=== PATIENT | female | born 1945 | race Caucasian/White ===

== ENCOUNTER 2022-01-02 13:32 | Inpatient (IN) | payer MEDICARE, MEDICAID ==
[2022-01-02 16:43] VITALS: BP 97/55; PULSE 104; TEMP 98.3
--- NOTE | 2022-01-02 17:16 | NUR ---
Pt recently arrived to the floor via EMS from [place]. She is alert and oriented, pain complaints to her abd. Pt does have an INT to her left AC which is INT'd at this time. Pt's son is at the bedside. Dr Judge in to see pt, awaiting orders at this time. Hospitalist also aware pt has arrived. RT has not brought IS at this time
[2022-01-02] MEDS ORDERED: LIPITOR 40MG TA40 MG PO (18:00)
[2022-01-02] MEDS ORDERED: FLONASEALLERGY NS (18:00)
[2022-01-02] MEDS ORDERED: FOLIC ACID0.4 MG PO (18:01)
[2022-01-02] MEDS ORDERED: MAG-OX 400400 MG/TAB PO (18:02)
[2022-01-02] MEDS ORDERED: LIALDA 1.2 GM1.2 GM PO (18:03)
[2022-01-02] MEDS ORDERED: MULTI VITAMINS1 TAB PO (18:04)
[2022-01-02] MEDS ORDERED: SINGULAIR 110 MG/TAB PO (18:04)
[2022-01-02] MEDS ORDERED: PREDNISONE 5MG5 MG PO ×2 (18:05→18:15)
[2022-01-02] MEDS ORDERED: PROTONIX 40MG T40 MG PO (18:05)
[2022-01-02] MEDS ORDERED: VITAMIN B650 MG PO (18:06)
[2022-01-02] MEDS ORDERED: VITAMIN D31000 IU PO (18:07)
[2022-01-02] MEDS ORDERED: LASIX 80MG TABL80 MG PO ×2 (18:08→18:22)
[2022-01-02] MEDS ORDERED: CARAFATE 1GM1 G PO (18:09)
[2022-01-02] MEDS ORDERED: NORCO 325 MG-51 TAB PO ×2 (18:17→18:18)
[2022-01-02] MEDS ORDERED: MIRALAX PA17 GM/Dose PO (18:17)
[2022-01-02] MEDS ORDERED: DULCOLAX TAB5 MG PO (18:23)
[2022-01-02] MEDS ORDERED: TUMS500 MG (18:23)
[2022-01-02] MEDS ORDERED: DULCOLAX S10 MG/SUPP RC (18:24)
[2022-01-02] MEDS ORDERED: FLEET MINE1 BOT/133 RC (18:25)
[2022-01-02] MEDS ORDERED: TYLENOL 325MG325 MG PO (18:26)
[2022-01-02] MEDS ORDERED: MYLANTA MAXIMU355 M1 PO (18:27)
[2022-01-02] MEDS ORDERED: BROVANA15 MCG/2 M IH (18:28)
[2022-01-02] MEDS ORDERED: YUPELRI175 MCG/3 IH (18:29)
[2022-01-02] MEDS ORDERED: PULMICORT0.5 MG/2 M IH (18:29)
[2022-01-02] MEDS ORDERED: PROAIR HFA0.09 MG/AC IH (18:32)
--- NOTE | 2022-01-02 19:22 | NUR ---
RECEIVED CHANGE OF SHIFT REPORT FROM DAY SHIFT RN.
[2022-01-02 19:58] VITALS: BP 104/63; PULSE 95; TEMP 97.7
[2022-01-02 23:51] VITALS: BP 115/56; PULSE 79; TEMP 97.5
[2022-01-03 03:45] VITALS: BP 101/46; PULSE 62; TEMP 97.3
[2022-01-03 06:52] LABS: HEMOGLOBIN 10.4 g/dl (12.5-16.0); MEAN CELL VOLUME 86 fl (80.0-100.0); MEAN CORPUSCULAR HEMOGLOBIN 27 pg (27-31); MEAN CORPUSCULAR HGB CONC 32 g/dl (33.0-37.0); MEAN PLATELET VOLUME 9.4 fl (7.4-10.4); PLATELET COUNT 391 K/mm3 (130-400); RED BLOOD COUNT 3.85 M/mm3 (4.10-5.30); REDCELL DISTRIBUTION WIDTH-CV 15.1 % (11.5-14.5)
--- NOTE | 2022-01-03 07:01 | NUR ---
CHANGE OF SHIFT REPORT GIVEN TO DAY SHIFT RNSHOAIB.
[2022-01-03 07:22] LABS: ALBUMIN 2.3 gm/dL (3.4-4.8); BILIRUBIN,TOTAL 0.2 mg/dL (0.2-1.2); CALCIUM 9.1 mg/dL (8.4-10.2); CREATININE, serum 1.43 mg/dL (0.57-1.11); TOTAL PROTEIN 5.4 gm/dL (6.2-8.1)
[2022-01-03 08:18] VITALS: BP 114/61; PULSE 62; TEMP 97.4
[2022-01-03 08:33] LABS: BAND 14 % (0-10); LYMPHOCYTE 15 % (20.0-51.0); NEUTROPHILS 69 % (42.0-75.2); PLATELET ESTIMATE NORMAL (NORMAL)
--- NOTE | 2022-01-03 10:05 | NUR ---
PT ASSESSED. NO COMPLAINTS OF PAIN OR DYSPNEA. NO SIGNS OR SYMPTOMS OF DISTRESS. CALL LIGHT WITHIN REACH
--- NOTE | 2022-01-03 10:11 | NUR ---
Initial visit; Patient thanked Public Health Veterinarian for looking in on her and keeping her in Public Health Veterinarian's prayers.
[2022-01-03 11:54] VITALS: BP 111/44; PULSE 71; TEMP 97.8
--- NOTE | 2022-01-03 14:22 | NUR ---
Dental Technician Apprentice met with patient to discuss discharge planning. Patient states she lives at [facility] "for now" and has been there for rehab. Patient states she sees Dr. Sheriff for primary care and advised she has a walker, cane, and wears oxygen at baseline. Patient advised her plan is to return to [facility] at time of discharge. SW contacted patient's daughter, Grace (ph#[phone]) to provide update. Grace advised that she and her brother, Raza Swanson are patient's DPOA-HC. SW advised Grace that discharge plan will be to return to [facility]. PROSPER contacted Kory at [facility] and faxed clinical updates. PROSPER also requested a copy of patient's DPOA-HC be faxed to PROSPER. Discharge Plan: [facility]
[2022-01-03 15:41] VITALS: BP 111/51; PULSE 79; TEMP 97.8
[2022-01-03 20:33] VITALS: BP 108/42; PULSE 84; TEMP 97.9
[2022-01-04 00:55] VITALS: BP 107/45; PULSE 74; TEMP 98
[2022-01-04 03:48] VITALS: BP 108/46; PULSE 69; TEMP 97.4
[2022-01-04 05:44] LABS: MEAN CELL VOLUME 85 fl (80.0-100.0); MEAN CORPUSCULAR HGB CONC 32 g/dl (33.0-37.0); MEAN PLATELET VOLUME 9.3 fl (7.4-10.4); PLATELET COUNT 357 K/mm3 (130-400); RED BLOOD COUNT 3.51 M/mm3 (4.10-5.30); REDCELL DISTRIBUTION WIDTH-CV 14.9 % (11.5-14.5)
[2022-01-04 06:02] LABS: HEMATOCRIT 29.9 % (37.0-47.0); HEMOGLOBIN 9.7 g/dl (12.5-16.0); MEAN CORPUSCULAR HEMOGLOBIN 28 pg (27-31)
[2022-01-04 06:07] LABS: BILIRUBIN,TOTAL 0.2 mg/dL (0.2-1.2); CALCIUM 8.9 mg/dL (8.4-10.2); CREATININE, serum 1.07 mg/dL (0.57-1.11); MAGNESIUM 1.9 mg/dL (1.6-2.6); POTASSIUM 5.1 mmol/L (3.5-4.5); TOTAL PROTEIN 4.9 gm/dL (6.2-8.1)
[2022-01-04 07:17] LABS: BAND 2 % (0-10); EOSINOPHIL 1 % (0-4); LYMPHOCYTE 8 % (20.0-51.0); NEUTROPHILS 86 % (42.0-75.2); PLATELET ESTIMATE NORMAL (NORMAL)
[2022-01-04 08:52] VITALS: BP 119/57; PULSE 87; TEMP 98
--- NOTE | 2022-01-04 09:18 | NUR ---
PT ASSESSED. NO COMPLAINTS OF PAIN OR DYSPNEA. NO SIGNS OR SYMPTOMS OF DISTRESS. CALL LIGHT WITHIN REACH.
--- NOTE | 2022-01-04 11:25 | NUR ---
Initial visit; Patient thanked Bag Bleacher for looking in on her and offering God's blessings and keeping her in Bag Bleacher's prayers.
[2022-01-04 11:27] VITALS: BP 110/63; PULSE 91; TEMP 97.8
[2022-01-04 16:22] VITALS: BP 113/71; PULSE 91; TEMP 97.8
[2022-01-04 19:25] VITALS: BP 121/60; PULSE 92; TEMP 97.9
[2022-01-05] VITALS (7 sets, daily range): BP systolic 104–141; BP diastolic 45–90; PULSE 64–103; TEMP 97.6–98.2
[2022-01-05 06:27] LABS: HEMOGLOBIN 10.1 g/dl (12.5-16.0); MEAN CELL VOLUME 87 fl (80.0-100.0); MEAN CORPUSCULAR HEMOGLOBIN 27 pg (27-31); MEAN CORPUSCULAR HGB CONC 32 g/dl (33.0-37.0); MEAN PLATELET VOLUME 9.1 fl (7.4-10.4); PLATELET COUNT 420 K/mm3 (130-400); RED BLOOD COUNT 3.69 M/mm3 (4.10-5.30)
[2022-01-05 06:46] LABS: CALCIUM 8.7 mg/dL (8.4-10.2); CREATININE, serum 0.83 mg/dL (0.57-1.11); POTASSIUM 4.5 mmol/L (3.5-4.5)
[2022-01-05 07:45] LABS: BAND 1 % (0-10); EOSINOPHIL 1 % (0-4); LYMPHOCYTE 7 % (20.0-51.0); MYELOCYTE 1 % (0-0); NEUTROPHILS 88 % (42.0-75.2); PLATELET ESTIMATE INCREASED (NORMAL)
--- NOTE | 2022-01-05 08:44 | NUR ---
PT ASSESSED. NO COMPLAINTS OF PAIN OR DYSPNEA. NO SIGNS OR SYMPTOMS OF DSITRESS. CALL LIGHT WITHIN REACH
--- NOTE | 2022-01-05 22:44 | NUR ---
Received report from day shift. Performed assessment, VSS, lungs CTA. Administered PM meds. Patient has significant bruising to bilat upper extremities. Patient has two small pressure ulcers at different stages on coccyx. Dressing in place.
[2022-01-06 02:54] VITALS: BP 120/48; PULSE 90; TEMP 98
[2022-01-06 06:29] LABS: HEMOGLOBIN 10.7 g/dl (12.5-16.0); MEAN CELL VOLUME 86 fl (80.0-100.0); MEAN CORPUSCULAR HEMOGLOBIN 27 pg (27-31); MEAN CORPUSCULAR HGB CONC 32 g/dl (33.0-37.0); MEAN PLATELET VOLUME 9.2 fl (7.4-10.4); PLATELET COUNT 453 K/mm3 (130-400); RED BLOOD COUNT 3.94 M/mm3 (4.10-5.30); REDCELL DISTRIBUTION WIDTH-CV 15.3 % (11.5-14.5)
[2022-01-06 06:35] LABS: HEMATOCRIT 33.9 % (37.0-47.0)
[2022-01-06 06:51] LABS: ALBUMIN 2.3 gm/dL (3.4-4.8); CALCIUM 9.3 mg/dL (8.4-10.2); CREATININE, serum 0.74 mg/dL (0.57-1.11); MAGNESIUM 1.7 mg/dL (1.6-2.6); PHOSPHOROUS 2.4 mg/dL (2.3-4.7); POTASSIUM 4.7 mmol/L (3.5-4.5)
[2022-01-06 07:03] VITALS: BP 141/78; PULSE 95; TEMP 97.6
[2022-01-06 07:04] LABS: BAND 2 % (0-10); LYMPHOCYTE 17 % (20.0-51.0); NEUTROPHILS 74 % (42.0-75.2)
[2022-01-06 07:05] LABS: ANISOCYTOSIS 1+; HYPOCHROMIA 1+; PLATELET ESTIMATE INCREASED (NORMAL)
--- NOTE | 2022-01-06 08:00 | NUR ---
PATIENT IS A&O. VSS ON TELE. NO C/O PAIN OR N/V. PATIENT UP TO BATHROOM AND HAD SMALL SOFT STOOL. PATIENT HOPING TO HAVE HER DIET ADVANCED TODAY. HEAD TO TOE ASSESSMENT COMPLETE. AM MEDS GIVEN. LEFT AC IV TO INT. NO OTHER NEEDS. CALL LIGHT IN REACH. BED ALARM ON.
--- NOTE | 2022-01-06 11:31 | NUR ---
Assistant Professor Of Economics faxed clinical updates to Kory at [facility]. Hospitalist advised patient not ready for discharge at this time. Discharge Plan: [facility]
[2022-01-06 12:00] VITALS: BP 128/75; PULSE 53; TEMP 97.9
[2022-01-06 15:03] VITALS: BP 108/63; PULSE 94; TEMP 98.3
[2022-01-06 19:10] VITALS: BP 115/67; PULSE 107; TEMP 97.5
--- NOTE | 2022-01-06 20:00 | NUR ---
Bedside shift report received, assumed care for maintenance supervisor 2nd shift. Assessment complete. A&Ox3. Rating pain 6/10 to back-described as constant ache-scheduled norco given per dr order. Tele reporting SR-1st degree AVB/BBB. O2@2L/NC with adequate saturations. Denies abdominal pain/nausea. Has tolerated PO. INT to left AC flushes without difficulty. +BM/+flatus. Voiding without difficulty. Stage II ulcer x2-pea size on each side of coccyx. Mepilex applied. Plan of care discussed for this shift to include meds/calling for questions/concerns. Verbalizes understanding. Call light in reach. Will monitor.
[2022-01-07] VITALS (8 sets, daily range): BP systolic 99–149; BP diastolic 53–72; PULSE 73–151; TEMP 97.6–98.4
--- NOTE | 2022-01-07 04:59 | NUR ---
Had an uneventful night. Denied nausea/shortness of breath/pain. +BM/+flatus. VS stable. Tolerated diet. Denies current needs. Call light in reach. Will monitor.
[2022-01-07 06:28] LABS: MEAN CELL VOLUME 88 fl (80.0-100.0); MEAN CORPUSCULAR HEMOGLOBIN 28 pg (27-31); MEAN CORPUSCULAR HGB CONC 31 g/dl (33.0-37.0); MEAN PLATELET VOLUME 9.2 fl (7.4-10.4); PLATELET COUNT 428 K/mm3 (130-400); RED BLOOD COUNT 3.63 M/mm3 (4.10-5.30); REDCELL DISTRIBUTION WIDTH-CV 15.2 % (11.5-14.5)
[2022-01-07 06:35] LABS: HEMATOCRIT 31.8 % (37.0-47.0)
[2022-01-07 06:56] LABS: ALBUMIN 2.1 gm/dL (3.4-4.8); CALCIUM 8.9 mg/dL (8.4-10.2); CREATININE, serum 0.74 mg/dL (0.57-1.11); MAGNESIUM 1.6 mg/dL (1.6-2.6); PHOSPHOROUS 2.8 mg/dL (2.3-4.7); POTASSIUM 4.4 mmol/L (3.5-4.5)
[2022-01-07 07:31] LABS: BAND 5 % (0-10); EOSINOPHIL 1 % (0-4); LYMPHOCYTE 16 % (20.0-51.0); NEUTROPHILS 69 % (42.0-75.2); PLATELET ESTIMATE NORMAL (NORMAL)
--- NOTE | 2022-01-07 07:45 | NUR ---
PATIENT GIVEN CONTRAST BY RADIOLOGY FOR SCAN IN AN HOUR
--- NOTE | 2022-01-07 08:00 | NUR ---
PATIENT IS A&O. VSS ON TELE. 02 @ 2L PER NC WITH SATS IN UPPER 90'S. PATIENT WEARS 02 @ 2L AT HOME AT BASELINE. DENIES PAIN OR N/V. TOLERATING LOW FIBER DIET. ABD IS ROUND, SOFT AND WITH POSITIVE BOWL SOUNDS. PATIENT HAVING SEVERAL SMALL SEMI-LOOSE STOOLS. IV ABX INFUSING VIA PUMP INTO LEFT AC IV. HEAD TO TOE ASSESSMENT COMPLETE. HOLDING AM MEDS FOR CONTRAST/CT SCAN THIS AM.
--- NOTE | 2022-01-07 08:45 | NUR ---
PATIENT GOING DOWN TO RADIOLOGY VIA FOR SCAN.
--- NOTE | 2022-01-07 09:50 | NUR ---
PATIENT BACK FROM SCAN. NOTED HR IN THE 140-150'S. HOSPITALIST NOTIFIED, SEE ORDERS.
--- NOTE | 2022-01-07 11:05 | NUR ---
RT CALLED AND REMINDED OF EKG ORDER
--- NOTE | 2022-01-07 12:53 | NUR ---
Director Data Analytics contacted Kory at [facility] and faxed clinical updates.
--- NOTE | 2022-01-07 20:00 | NUR ---
Bedside shift report received, assumed care for security shift supervisor. Assessment complete. A&Ox3. Denies pain/nausea. Short of breath with activity. TELE reports SR with BBB. O2@2L/NC. Noted to have bilat upper lobe exp wheezes/bilat bases diminished. Left AC INT flushes well. Noted to have very thin skin-multiple skin tears to BUE as well as bruising. Stage II pressure ulcers x2-pea size on both sides of buttocks. Dressing CDI. Plan of care discussed for this shift to include meds/O2/calling for questions/concerns. Verbalizes understanding/denies needs. Call light in reach. Will monitor.
--- NOTE | 2022-01-07 23:56 | NUR ---
Humidification added to oxygen due to nose bleed. Patient states inside nose is dried out from O2.
--- NOTE | 2022-01-08 01:32 | NUR ---
IV to left AC infiltrated/leaking. DCd at this time cath intact. New IV placed to right [id number] attempt by this nurse. Tolerated well. Wrapped in loose coban as patient has reaction to tape. Will monitor.
[2022-01-08 03:36] VITALS: BP 111/61; PULSE 99; TEMP 97.3
--- NOTE | 2022-01-08 05:29 | NUR ---
Patient had an uneventful night. Received norco x1 for back/leg pain. O2@2L/NC. +BM/+flatus. Vitals remained stable. Denies current needs. Call light in reach. Will monitor.
--- NOTE | 2022-01-08 06:38 | NUR ---
Report given to BILL Mcginnis.
[2022-01-08 06:45] LABS: HEMOGLOBIN 10.7 g/dl (12.5-16.0); MEAN CELL VOLUME 87 fl (80.0-100.0); MEAN CORPUSCULAR HEMOGLOBIN 28 pg (27-31); MEAN CORPUSCULAR HGB CONC 32 g/dl (33.0-37.0); MEAN PLATELET VOLUME 9.2 fl (7.4-10.4); PLATELET COUNT 425 K/mm3 (130-400); RED BLOOD COUNT 3.86 M/mm3 (4.10-5.30); REDCELL DISTRIBUTION WIDTH-CV 15.3 % (11.5-14.5)
[2022-01-08 07:01] LABS: HEMATOCRIT 33.7 % (37.0-47.0)
[2022-01-08 07:08] LABS: ALBUMIN 2.2 gm/dL (3.4-4.8); CALCIUM 9.1 mg/dL (8.4-10.2); CREATININE, serum 0.74 mg/dL (0.57-1.11); MAGNESIUM 1.6 mg/dL (1.6-2.6); PHOSPHOROUS 2.5 mg/dL (2.3-4.7); POTASSIUM 3.6 mmol/L (3.5-4.5)
[2022-01-08 07:37] VITALS: BP 110/51; PULSE 103; TEMP 97.7
[2022-01-08 07:54] LABS: BAND 13 % (0-10); EOSINOPHIL 1 % (0-4); LYMPHOCYTE 19 % (20.0-51.0); NEUTROPHILS 63 % (42.0-75.2)
[2022-01-08 07:57] LABS: HYPOCHROMIA 2+; PLATELET ESTIMATE INCREASED (NORMAL)
--- NOTE | 2022-01-08 08:35 | NUR ---
Assessment completed, alert/oriented, vital signs stable, denies pain or discomfort at this time, abd soft and BS+, tolerating low fiber diet, she reports some continued loose stools/ GI panel was negative, WBC continues to improve and trend down, she has been Afebrile, will continue to monitor, she denies needs at this time
[2022-01-08] MEDS ORDERED: AMOXICILLIN 8751 TAB PO (08:43)
[2022-01-08] MEDS ORDERED: PROBIOTIC ACID1 EAC3 PO (08:44)
[2022-01-08] MEDS ORDERED: IMODIUM 2MG CAPS2 MG PO (08:46)
[2022-01-08 10:26] VITALS: BP 110/51; PULSE 103; TEMP 97.7
--- NOTE | 2022-01-08 11:15 | NUR ---
Patient transferring back to [facility], I have called report to recieving nursing staff, IV and tele removed, SR. PAYROLL PROCESSOR assisted with getting patient cleaned up and dressed, leaving with [employer] transport personel at this time
--- NOTE | 2022-01-08 12:54 | NUR ---
Patient is ready for discharge to [facility]. PROSPER contacted Kory at [facility] and scheduled transport time for 1100. SW provided transport time to RN. SW met with patient to present and review IM form. Patient verbalized understanding and provided signature. SW placed form in chart and provided copy to patient. SW faxed discharge orders and negative covid results to [facility]. SW contacted patient's daughter, Grace and left a message.
== END 2022-01-08 11:33 | DRG 872 ==
LOC: SURG 13:32
PROVIDERS: Internal Medicine; Physician Assistant; ADMIT Internal Medicine
DX: A41.9 Sepsis, unspecified organism (principal); J96.11 Chronic respiratory failure with hypoxia; K57.20 Diverticulitis of large intestine with perforation and abscess without bleeding; N17.9 Acute kidney failure, unspecified; I10 Essential (primary) hypertension; R65.20 Severe sepsis without septic shock; K21.9 Gastro-esophageal reflux disease without esophagitis; E78.5 Hyperlipidemia, unspecified; K59.00 Constipation, unspecified; J44.9 Chronic obstructive pulmonary disease, unspecified; G89.29 Other chronic pain; M54.9 Dorsalgia, unspecified; L89.152 Pressure ulcer of sacral region, stage 2; E87.5 Hyperkalemia; E83.52 Hypercalcemia; Z99.81 Dependence on supplemental oxygen; Z87.891 Personal history of nicotine dependence; Z20.822 Contact with and (suspected) exposure to COVID-19; Z23 Encounter for immunization
CPT/HCPCS: 99223-AI; 99231-AI; 99232-AI; 99239; J1644; J2543; J7120; J7512

== ENCOUNTER 2022-05-23 13:51 | Day surgery (SDC) | payer MEDICARE, MEDICAID ==
[~2022-05-23] VITALS: Ht 152.4 cm; Wt 46.8 kg
[~2022-05-23 13:51] MED LIST: AMOXICILLIN 8751 TAB PO; BROVANA15 MCG/2 M IH; CARAFATE 1GM1 G PO; DULCOLAX S10 MG/SUPP RC; DULCOLAX TAB5 MG PO; FLEET MINE1 BOT/133 RC; FLONASEALLERGY NS; FOLIC ACID0.4 MG PO; IMODIUM 2MG CAPS2 MG PO; LASIX 80MG TABL80 MG PO; LIALDA 1.2 GM1.2 GM PO; LIPITOR 40MG TA40 MG PO; MAG-OX 400400 MG/TAB PO; MIRALAX PA17 GM/Dose PO; MULTI VITAMINS1 TAB PO; MYLANTA MAXIMU355 M1 PO; NORCO 325 MG-51 TAB PO; PREDNISONE 5MG5 MG PO; PROAIR HFA0.09 MG/AC IH; PROBIOTIC ACID1 EAC3 PO; PROTONIX 40MG T40 MG PO; PULMICORT0.5 MG/2 M IH; SINGULAIR 110 MG/TAB PO; TUMS500 MG; TYLENOL 325MG325 MG PO; VITAMIN B650 MG PO; VITAMIN D31000 IU PO; YUPELRI175 MCG/3 IH
[2022-05-23 14:10] VITALS: BP 105/64; PULSE 112; TEMP 97.8
--- NOTE | 2022-05-23 14:40 | NUR ---
When placing the tourniquet on the patient's right foream to place her IV a quarter sized skin tear occurred. The patient states she "didn't even feel it" and denies any pain at the site at this time. The area was covered with a tegaderm to prevent any futher tearing from occurring. The endoscopy nurse was notified of the patient's thin, sensitive skin and where the skin tear is located.
[2022-05-23] MEDS ORDERED: NORCO 325 MG-101 TAB PO ×2 (14:55)
[2022-05-23] MEDS ORDERED: PHENERGAN 25 TA25 MG PO (15:00)
[2022-05-23] MEDS ORDERED: ALDACTONE 25MG25 M1 PO (15:02)
[2022-05-23] MEDS ORDERED: LANOXIN 0.120.125 MG PO (15:02)
[2022-05-23] MEDS ORDERED: ROBITUSSIN100 MG/5 M PO (15:04)
[2022-05-23] MEDS ORDERED: PREDNISONE20 MG PO (15:05)
[2022-05-23] MEDS ORDERED: DOXYCYCLINE 10100 MG PO (15:06)
[2022-05-23] MEDS ORDERED: [UNRECOGNIZED DRUG - OTHER] NS (15:09)
[2022-05-23] MEDS ORDERED: [UNRECOGNIZED DRUG - OTHER] NS (15:10)
[2022-05-23 16:00] VITALS: BP 153/73; PULSE 104; TEMP 97.1
[2022-05-23 16:15] VITALS: BP 138/82; PULSE 100
[2022-05-23 16:30] VITALS: BP 139/85; PULSE 104
--- NOTE | 2022-05-23 16:45 | NUR ---
1600 AWAKE, ALERT. PATIENT REMAINS ON CART FOLLOWING PROCEDURE. RESP SPONTANEOUS. O2 AT 3L/NC PREOP. OCC. MOIST COUGH. PATIENT DENIES NAUSEA OR ABD PAIN OR DYSPHAGIA SON HERE. 1606 DR. JOHNS HERE TO VISIT WITH PATIENT AND SON. 1620 PATIENT TOLERATES PO WATER WITHOUT NAUSEA. SWALLOWS WITHOUT DIFFICULTY. REFUSES SNACK. 1630 DISCHARGE INSTRUCTIONS TO PROVIDED. PATIENT AND SON VERBALIZE UNDERSTANDING. COPY OF INSTRUCTIONS AND EDUCATIONAL MATERIALS PROVIDED IN GO HOME FOLDER. 1637 STANDS AT BEDSIDE, DRESSES WITH ASSISTANCE OF THIS NURSE. THEN TO WHEELCHAIR FOR TRANSPORT TO WAITING VAN FROM ASSISTED LIVING FACILITY.ACCOMPANIED BY THIS NURSE AND PATIENT'S SON.
== END 2022-05-23 16:45 | disposition home or self-care (01) ==
LOC: SDCO 13:51
DX: D12.5 Benign neoplasm of sigmoid colon (principal); K56.609 Unspecified intestinal obstruction, unspecified as to partial versus complete obstruction; K57.30 Diverticulosis of large intestine without perforation or abscess without bleeding; K51.00 Ulcerative (chronic) pancolitis without complications; K21.00 Gastro-esophageal reflux disease with esophagitis, without bleeding; K29.30 Chronic superficial gastritis without bleeding
CPT/HCPCS: J2704; J7120

== ENCOUNTER 2022-06-01 17:15 | Inpatient (IN) | payer MEDICARE, MEDICAID ==
[2022-06-01] VITALS (205 sets, daily range): BP systolic 95–125; BP diastolic 60–67; PULSE 120–151; TEMP 97.4; O2SAT 49–100
[~2022-06-01] VITALS: Ht 149.9 cm; Wt 53.2 kg
[~2022-06-01 17:15] MED LIST changes: +ALDACTONE 25MG25 M1 PO; +DOXYCYCLINE 10100 MG PO; +LANOXIN 0.120.125 MG PO; +NORCO 325 MG-101 TAB PO; +PHENERGAN 25 TA25 MG PO; +PREDNISONE20 MG PO; +ROBITUSSIN100 MG/5 M PO; +[UNRECOGNIZED DRUG - OTHER] NS; +[UNRECOGNIZED DRUG - OTHER] NS
--- NOTE | 2022-06-01 18:55 | NUR ---
Arrived to the unit via EMS. Alert and oriented and in no distress upon arrival. Attached to all monitors and call light left within reach.
--- NOTE | 2022-06-01 20:00 | NUR ---
SHIFT REPORT RECEIVED. DURING SKIN ASSESSMENT MULTIPLE SKIN TEARS NOTED. LT FOREARM X2 SKIN TEARS. LT UPPER ARM X3 SKIN TEARS. LT ELBOW X1 SKIN TEAR. RT FOREARM X2 SKIN TEARS. RT UPPER ARM X3 SKIN TEARS. BLE +3 PITTING EDEMA. LT HEEL ERYTHEMIA. LT CALF WHEEPING WOUND. COCCYX WITH 3 SCATTERED BLISTERS AND 1 STAGE 2 PRESSURE ULCER. PT WITH GENERALIZED SCATTERED ECCHYMOSIS.
[2022-06-01 21:20] LABS: ARTERIAL BLD GAS O2 SATURATION 86.3 % (92-100); ARTERIAL BLOOD GAS BASE EXCESS 3.4 (-2-2); ARTERIAL BLOOD GAS HCO3 28.6 meq/L (22-26); ARTERIAL BLOOD GAS PO2 55.7 mmHg (80-100); ARTERIAL BLOOD GAS pH 7.41 (7.35-7.45)
[2022-06-01] MEDS ORDERED: PREDNISONE50 MG PO (21:45)
[2022-06-01] MEDS ORDERED: THEO-24400 MG PO (21:46)
[2022-06-01] MEDS ORDERED: LANOXIN 0.120.125 MG PO (21:47)
[2022-06-01] MEDS ORDERED: NORCO 325 MG-101 TAB PO ×2 (21:49→21:54)
[2022-06-01] MEDS ORDERED: LEVAQUIN 5500 MG/TA1 PO (21:52)
[2022-06-01] MEDS ORDERED: TUMS500 MG PO (21:53)
[2022-06-01] MEDS ORDERED: LASIX 80MG TABL80 MG PO (21:53)
[2022-06-01] MEDS ORDERED: ALDACTONE50 MG PO (21:53)
[2022-06-01] MEDS ORDERED: IMODIUM 2MG CAPS2 MG PO (21:54)
[2022-06-01] MEDS ORDERED: DULCOLAX S10 MG/SUPP RC (21:54)
[2022-06-01] MEDS ORDERED: GERI-TUSSI100 MG/5 M PO (21:57)
[2022-06-01] MEDS ORDERED: FLEET ENEM1 BOT/133 RC (21:58)
[2022-06-01] MEDS ORDERED: YUPELRI175 MCG/3 IH (22:01)
[2022-06-01 22:34] LABS: INR 1.3 (0.8-3.0); PROTHROMBIN TIME 15.1 SECONDS (9.7-12.8)
[2022-06-01 22:45] LABS: ALBUMIN 1.9 gm/dL (3.4-4.8); BILIRUBIN,TOTAL 0.4 mg/dL (0.2-1.2); CREATININE, serum 1.42 mg/dL (0.57-1.11); PHOSPHOROUS 4.5 mg/dL (2.3-4.7); POTASSIUM 4.4 mmol/L (3.5-4.5); TOTAL PROTEIN 5.5 gm/dL (6.2-8.1)
[2022-06-01 22:53] LABS: TROPONIN-I 0.258 ng/mL (0.00-0.033)
[2022-06-02] VITALS (962 sets, daily range): BP systolic 92–136; BP diastolic 47–70; PULSE 74–110; TEMP 96.7–98.1; O2SAT 58–100
[2022-06-02 00:43] LABS: COLLECTION METHOD CLEAN CATCH
[2022-06-02 01:00] LABS: BUDDING YEAST Present (NOT PRESENT); MUCOUS Present (NOT PRESENT); PH 5 (5-8); SQUAMOUS EPITHELIAL 0-2 /hpf (0-10); URINE APPEARANCE Cloudy (CLEAR/HAZY); URINE BACTERIA Rare /hpf (NONE SEEN); URINE BLOOD Negative (NEGATIVE); URINE CALCIUM OXALATE CRYSTAL Present (NOT PRESENT); URINE COLOR Yellow (YELLOW); URINE GLUCOSE Negative (NEGATIVE); URINE KETONE Negative (NEGATIVE); URINE NITRATE Negative (NEGATIVE); URINE PROTEIN(semi-quant) Negative (NEGATIVE); URINE RBC 20-50 /hpf (0-2); URINE UROBILINOGEN Negative (NEGATIVE)
[2022-06-02] MEDS ORDERED: LIPITOR 40MG TA40 MG PO (01:16)
[2022-06-02] MEDS ORDERED: DULCOLAX TAB5 MG PO (01:37)
[2022-06-02] MEDS ORDERED: FLEET ENEM1 BOT/133 RC (01:39)
[2022-06-02] MEDS ORDERED: AYR SALINE GEL1 NS (01:52)
[2022-06-02 03:29] LABS: MEAN CELL VOLUME 76 fl (80.0-100.0); MEAN CORPUSCULAR HGB CONC 30 g/dl (33.0-37.0); MEAN PLATELET VOLUME 9.7 fl (7.4-10.4); PLATELET COUNT 228 K/mm3 (130-400); RED BLOOD COUNT 3.54 M/mm3 (4.10-5.30)
[2022-06-02 03:35] LABS: HEMATOCRIT 26.8 % (37.0-47.0); HEMOGLOBIN 8.1 g/dl (12.5-16.0); MEAN CORPUSCULAR HEMOGLOBIN 23 pg (27-31)
[2022-06-02 03:41] LABS: ALBUMIN 1.9 gm/dL (3.4-4.8); BILIRUBIN,TOTAL 0.4 mg/dL (0.2-1.2); C-REACTIVE PROTEIN 13.31 mg/dL (0.00-0.50); CALCIUM 9.8 mg/dL (8.4-10.2); POTASSIUM 4.4 mmol/L (3.5-4.5); TOTAL PROTEIN 5.4 gm/dL (6.2-8.1)
[2022-06-02 03:56] LABS: CREATININE, serum 1.34 mg/dL (0.57-1.11)
[2022-06-02 04:00] LABS: ANISOCYTOSIS 1+; BAND 10 % (0-10); HYPOCHROMIA 3+; LYMPHOCYTE 2 % (20.0-51.0); MICROCYTOSIS 1+; NEUTROPHILS 86 % (42.0-75.2); NUCLEATED RED BLOOD CELL 2 (0-6); PLATELET ESTIMATE NORMAL (NORMAL)
[2022-06-02 04:01] LABS: BURR CELLS 1+; OVALOCYTES 1+
--- NOTE | 2022-06-02 05:53 | NUR ---
76 yo female transferred to [facility] for further care and management of a-fib with RVR complicated by CAVP secondary to Covid-19 with possible superimposed bacterial pneumonia. ht 149.86 cm wt 50.4 kg SCr 1.42 with estimated CrCl ~20 ml/min half life 26.2 hours Plan: Patient was previously receiving vancomycin prior to transfer; will continue regimen of vancomycin 750 mg q24h to target a goal trough of 15-20 mcg/ml. Will follow patient's renal function, micro data, and vancomycin levels as indicated to assess for any necessary changes to regimen. Thank you for this dosing consult.
--- NOTE | 2022-06-02 07:00 | NUR ---
PT RESTING IN BED EATING BREAKFAST. VSS. PT HAS NS RUNNING. SONNY BEDSIDE. SEIZURE PADS ON BED. CALL LIGHT WITHIN REACH.
--- NOTE | 2022-06-02 07:00 | NUR ---
REPORT RECEIVED FROM SURINDER KHAN. PT RESTING IN BED. PT IS AFIB ON TELE 90-120. OTHER VSS. PT NPO FOR ABD ULTRASOUND. 0740- ULTRASOUND BEDSIDE 0825- BEDSIDE FOR EVAL. 0830- JAY PICC RN BEDSIDE FOR PLACEMENT.
--- NOTE | 2022-06-02 07:22 | NUR ---
REPORT GIVEN TO BILL ARREOLA
--- NOTE | 2022-06-02 09:42 | NUR ---
0830- NOTIFED OF CONSULT. 0930-MESSAGE LEFT FOR REGARDING CONSULT.
--- NOTE | 2022-06-02 09:57 | NUR ---
Paving Machine Operator contacted patient's daughter, Grace (ph#[phone]) to discuss discharge planning as patient is in isolation for [facility]. Patient lives at [facility] and sees Dr. Sheriff for primary care. Patient's medications are managed through [facility] and she receives assistance from staff with ADLS. Grace advised patient has a cane, walker, and wheelchair available to her. Patient has Advance Directives in EMR which designate her children, Grace and Raza as DPOA-HC. Grace confirmed discharge plan will be for patient to return to [facility]. SW contacted Kory at [facility] and faxed clinical updates. Discharge Plan: [facility]
--- NOTE | 2022-06-02 19:16 | NUR ---
During report patient noted to be pulling off tele. Patient pads replaced. Patient 78% on 10L. Patient increased to 15L. Respiratory notified.
[2022-06-02 19:53] LABS: ARTERIAL BLD GAS O2 SATURATION 93.6 % (92-100); ARTERIAL BLD GAS TCO2 CT 26.9; ARTERIAL BLOOD GAS HCO3 25.5 meq/L (22-26); ARTERIAL BLOOD GAS PCO2 44.8 mmHg (35-45); ARTERIAL BLOOD GAS PO2 75.7 mmHg (80-100); ARTERIAL BLOOD GAS pH 7.37 (7.35-7.45)
--- NOTE | 2022-06-02 21:53 | NUR ---
Assessment complete and charted. Patient continues to have increase WOB. Respiratory collecting ABG. Family aware.
[2022-06-02 21:55] LABS: ARTERIAL BLD GAS O2 SATURATION 92.4 % (92-100); ARTERIAL BLD GAS TCO2 CT 27.9; ARTERIAL BLOOD GAS BASE EXCESS 1.2 (-2-2); ARTERIAL BLOOD GAS HCO3 26.5 meq/L (22-26); ARTERIAL BLOOD GAS PCO2 45.7 mmHg (35-45); ARTERIAL BLOOD GAS PO2 68.1 mmHg (80-100); ARTERIAL BLOOD GAS pH 7.38 (7.35-7.45)
--- NOTE | 2022-06-02 22:00 | NUR ---
Patient at 50L and 70% on airvo
[2022-06-03] VITALS (1279 sets, daily range): BP systolic 120–150; BP diastolic 54–73; PULSE 75–102; TEMP 97.9–99.3; O2SAT 78–100
[2022-06-03 01:05] LABS: ARTERIAL BLD GAS O2 SATURATION 87.2 % (92-100); ARTERIAL BLD GAS TCO2 CT 25.9; ARTERIAL BLOOD GAS HCO3 24.7 meq/L (22-26); ARTERIAL BLOOD GAS PCO2 40.3 mmHg (35-45); ARTERIAL BLOOD GAS PO2 57.5 mmHg (80-100); ARTERIAL BLOOD GAS pH 7.41 (7.35-7.45)
--- NOTE | 2022-06-03 01:14 | NUR ---
PATIENT REMAINS ALERT AND ORIENTATED BUT HAVING INCREASED DISCOMFORT AND AGITATION. LUAN WIGGINS IN ICU. ADDED ORDERS FOR MORPHINE 2MG.
[2022-06-03 04:31] LABS: ARTERIAL BLD GAS O2 SATURATION 85.6 % (92-100); ARTERIAL BLOOD GAS BASE EXCESS -2.4 (-2-2); ARTERIAL BLOOD GAS HCO3 23.2 meq/L (22-26); ARTERIAL BLOOD GAS PCO2 41.9 mmHg (35-45); ARTERIAL BLOOD GAS PO2 57.1 mmHg (80-100); ARTERIAL BLOOD GAS pH 7.36 (7.35-7.45)
[2022-06-03 05:40] LABS: MEAN CELL VOLUME 74 fl (80.0-100.0); MEAN CORPUSCULAR HGB CONC 31 g/dl (33.0-37.0); MEAN PLATELET VOLUME 9.6 fl (7.4-10.4); PLATELET COUNT 178 K/mm3 (130-400); RED BLOOD COUNT 3.04 M/mm3 (4.10-5.30); REDCELL DISTRIBUTION WIDTH-CV 16.9 % (11.5-14.5)
[2022-06-03 05:45] LABS: HEMATOCRIT 22.4 % (37.0-47.0); MEAN CORPUSCULAR HEMOGLOBIN 23 pg (27-31)
[2022-06-03 05:55] LABS: ALBUMIN 1.8 gm/dL (3.4-4.8); BILIRUBIN,TOTAL 0.4 mg/dL (0.2-1.2); CALCIUM 9.5 mg/dL (8.4-10.2); CREATININE, serum 1.4 mg/dL (0.57-1.11); POTASSIUM 4.4 mmol/L (3.5-4.5)
[2022-06-03 06:21] LABS: BAND 1 % (0-10); LYMPHOCYTE 2 % (20.0-51.0); METAMYELOCYTE 3 % (0-0); NEUTROPHILS 93 % (42.0-75.2); NUCLEATED RED BLOOD CELL 2 (0-6)
[2022-06-03 06:23] LABS: ANISOCYTOSIS 1+; HYPOCHROMIA 1+; MICROCYTOSIS 1+
[2022-06-03 06:24] LABS: BURR CELLS 1+
--- NOTE | 2022-06-03 06:42 | NUR ---
Patient remained on airvo during night. Patient had some increased agitation and was given morphine. Patient skin continues to wheep, dressings changed this morning. Mitts in place as patient attemping to pull at cords and picc.
--- NOTE | 2022-06-03 07:00 | NUR ---
BEDSIDE REPORT RECEIVED FROM BILL GRESHAM.
--- NOTE | 2022-06-03 07:31 | NUR ---
Report given to BILL Mallory
--- NOTE | 2022-06-03 09:23 | NUR ---
Patient Access Representative faxed clinical updates to [facility].
--- NOTE | 2022-06-03 11:53 | NUR ---
Signals Collection Technician spoke with Hospitalist who recommended a referral to [facility]. Patient is on 50-60 liters of oxygen at this time. PROSPER contacted Joselito at [facility] and faxed referral. PROSPER then contacted patient's daughter, Grace to give update on recommendation. Grace verbalized understanding and would like to speak with Joselito at [facility] when he is available. PROSPER spoke with Joselito who will contact Grace once he has an opportunity to review patient's records. PROSPER contacted Kory at [facility] and advised referral to [facility] was sent. Discharge Plan: [facility]
[2022-06-03 13:21] LABS: HEMATOCRIT 22.7 % (37.0-47.0)
[2022-06-03 13:22] LABS: HEMOGLOBIN 6.8 g/dl (12.5-16.0)
[2022-06-03 19:29] LABS: HEMATOCRIT 28.5 % (37.0-47.0)
--- NOTE | 2022-06-03 20:34 | NUR ---
ASSESSMENT COMPLETE AND CHARTED. PATIENT CONFUSED UNABLE TO STATE PLACE TIME SITUATION. CURRENTLY ON AIRVO. LABORED AT REST. REPOSITIONED AND HOB ELEVATED.
[2022-06-03 21:20] LABS: ARTERIAL BLD GAS O2 SATURATION 94.3 % (92-100); ARTERIAL BLD GAS TCO2 CT 22.7; ARTERIAL BLOOD GAS BASE EXCESS -4.9 (-2-2); ARTERIAL BLOOD GAS HCO3 21.4 meq/L (22-26); ARTERIAL BLOOD GAS PCO2 43.8 mmHg (35-45); ARTERIAL BLOOD GAS PO2 76.4 mmHg (80-100); ARTERIAL BLOOD GAS pH 7.31 (7.35-7.45)
--- NOTE | 2022-06-03 22:44 | NUR ---
PATIENT 84% ON AIRVO 50L 70%. RESPIRATORY CONTACTED TO INCREASE AIRVO SETTINGS. PATIENT 60L AND 87% WITH SATURATIONS OF 91%. LUAN WIGGINS NOTIFIED. ATTEMPT BIPAP.
[2022-06-04] VITALS (1094 sets, daily range): BP systolic 134–158; BP diastolic 67–74; PULSE 64–73; TEMP 96.4–98; O2SAT 30–100
--- NOTE | 2022-06-04 00:46 | NUR ---
LUAN WIGGINS CALLED TO BEDSIDE DUE TO CONTINUOUS DIFFICULTY BREATHING WITH NEW FOUND BRUISING AND BLEEDING UNDER SKIN WHEN TELE PATCH REMOVED. PATIENT INTERMITTENTLY CONFUSED. SWATTING IN MIDAIR AND AGITATED, BUT ABLE TO ANSWER QUESTIONS CORRECTLY. LUAN WIGGINS ORDERED LABS, AND AM CHEST XRAY. PATIENT TO REMAIN ON BIPAP. CURRENTLY ON BIPAP AT 80%.
[2022-06-04 05:34] LABS: MEAN CELL VOLUME 76 fl (80.0-100.0); MEAN CORPUSCULAR HGB CONC 31 g/dl (33.0-37.0); MEAN PLATELET VOLUME 9.6 fl (7.4-10.4); PLATELET COUNT 169 K/mm3 (130-400); RED BLOOD COUNT 3.61 M/mm3 (4.10-5.30); REDCELL DISTRIBUTION WIDTH-CV 16.9 % (11.5-14.5)
[2022-06-04 05:57] LABS: HEMATOCRIT 27.5 % (37.0-47.0); HEMOGLOBIN 8.6 g/dl (12.5-16.0); MEAN CORPUSCULAR HEMOGLOBIN 24 pg (27-31)
[2022-06-04 06:01] LABS: ALBUMIN 1.8 gm/dL (3.4-4.8); BILIRUBIN,TOTAL 0.6 mg/dL (0.2-1.2); CALCIUM 9.3 mg/dL (8.4-10.2); CREATININE, serum 1.69 mg/dL (0.57-1.11); POTASSIUM 4.4 mmol/L (3.5-4.5); TOTAL PROTEIN 4.9 gm/dL (6.2-8.1)
[2022-06-04 06:08] LABS: INR 1.1 (0.8-3.0); PROTHROMBIN TIME 13.1 SECONDS (9.7-12.8)
[2022-06-04 06:10] LABS: PARTIAL THROMBOPLASTIN TIME 37.6 SECONDS (26.0-37.0)
[2022-06-04 06:36] LABS: ANISOCYTOSIS 1+; BAND 2 % (0-10); LYMPHOCYTE 1 % (20.0-51.0); NEUTROPHILS 96 % (42.0-75.2); NUCLEATED RED BLOOD CELL 2 (0-6); PLATELET ESTIMATE NORMAL (NORMAL)
--- NOTE | 2022-06-04 07:35 | NUR ---
Report given to BILL Phipps. Patient remains on bipap this AM.
--- NOTE | 2022-06-04 08:00 | NUR ---
Patient intermittently restless in bed. Able to open eyes and wiggle toes on command but will not follow other verbal commands. Speech is incoherent. Lung sounds are diminished in all lobes. Currenly on BIPAP with 02 maintaining greater than 98%. Patient also tends to rest with her head arched backwards. Have attempted multiple times to reposition and placed towel rolls under her neck. Due to this head position and patient freqently open her mouth the mask often has an air leak. RT and custodial supervisor aware.
[2022-06-04 09:36] LABS: ARTERIAL BLD GAS O2 SATURATION 94.4 % (92-100); ARTERIAL BLD GAS TCO2 CT 25.8; ARTERIAL BLOOD GAS BASE EXCESS -3.1 (-2-2); ARTERIAL BLOOD GAS HCO3 24.1 meq/L (22-26); ARTERIAL BLOOD GAS PCO2 54.4 mmHg (35-45); ARTERIAL BLOOD GAS PO2 80.1 mmHg (80-100); ARTERIAL BLOOD GAS pH 7.26 (7.35-7.45)
--- NOTE | 2022-06-04 10:49 | NUR ---
Industrial Servicer attended clinical rounds with the team and patient's children are coming to visit today to make decisions regarding goals of care.
--- NOTE | 2022-06-04 12:40 | NUR ---
Moaning and restless in bed; PRN morphine administered. Dressing to bilateral arms changed at this time. Chucks under patient also changed due to dampness from serous fluid weeping from legs. Will continue to monitor.
--- NOTE | 2022-06-04 13:00 | NUR ---
Patient's children at bedside. Hospitalist discussed the severity of patient status with family. Will discuss amongst themselves and make a determination regarding code status and plan of care.
--- NOTE | 2022-06-04 15:19 | NUR ---
Family has made the decision to make patient comfort care. Hospitalist notified. Family awaiting the arrival of one more grandchild. Per family request will hold off on removing BIPAP and drips until his arrival.
--- NOTE | 2022-06-04 17:36 | NUR ---
Family at bedside and requesting to remove BIPAP and stop medications at this time. PRN morphine and Ativan administered for comfort and BIPAP and drips were stopped following this administration. Will continue to monitor.
--- NOTE | 2022-06-04 21:35 | NUR ---
FAMILY AT BEDSIDE, PT REMAINS SOMNOLENT. NO SIGNS OF DISTRESS OR SOA. HR AND BP HAS REMAINED WNL. MINIMAL INTERRUPTIONS MADE BY RN TO ALLOW FAMILY TIME WITH PT, ENCOURAGED TO CALL FOR ANY NEEDS, QUESTIONS OR CONCERNS.
--- NOTE | 2022-06-04 23:15 | NUR ---
TIME OF 8130 VERIFIED BY TWO RNS, MYSELF AND REYMUNDO MCDANIELS RN. FAMILY AT BEDSIDE. FLOORWALKER NOTIFIED.
--- NOTE | 2022-06-04 23:53 | NUR ---
BODY TO BE RELEASED TO HOME WITH PICC LINE AND MIMS CATHETER IN PLACE PER MORTITIAN REQUEST.
--- NOTE | 2022-06-05 01:00 | NUR ---
BODY RELEASED TO HOME AT THIS TIME.
== END 2022-06-05 01:00 | disposition expired | DRG 177 ==
LOC: IMCU 17:15 → ICU 18:49
PROVIDERS: Internal Medicine Pulmonary Disease; Nurse Practitioner Family; Student in an Organized Health Care Education/Training Program; ADMIT Internal Medicine
PROC: 02HV33Z Insertion of Infusion Device into Superior Vena Cava, Percutaneous Approach (ICD-10-PCS; principal; 2022-06-02)
DX: U07.1 COVID-19 (principal); I21.A1 Myocardial infarction type 2; J96.21 Acute and chronic respiratory failure with hypoxia; J12.82 Pneumonia due to coronavirus disease 2019; J44.1 Chronic obstructive pulmonary disease with (acute) exacerbation; N17.9 Acute kidney failure, unspecified; E87.1 Hypo-osmolality and hyponatremia; I47.1 Supraventricular tachycardia; E87.2 Acidosis; J91.8 Pleural effusion in other conditions classified elsewhere; Z66 Do not resuscitate; I48.91 Unspecified atrial fibrillation; E78.5 Hyperlipidemia, unspecified; K59.09 Other constipation; K21.9 Gastro-esophageal reflux disease without esophagitis; M81.0 Age-related osteoporosis without current pathological fracture; G89.29 Other chronic pain; I11.0 Hypertensive heart disease with heart failure; I50.9 Heart failure, unspecified; D72.829 Elevated white blood cell count, unspecified; I45.10 Unspecified right bundle-branch block; I95.9 Hypotension, unspecified; E87.8 Other disorders of electrolyte and fluid balance, not elsewhere classified; E83.52 Hypercalcemia; R73.9 Hyperglycemia, unspecified; D50.9 Iron deficiency anemia, unspecified; I49.1 Atrial premature depolarization; L89.152 Pressure ulcer of sacral region, stage 2; Z88.1 Allergy status to other antibiotic agents; Z99.81 Dependence on supplemental oxygen; Z88.8 Allergy status to other drugs, medicaments and biological substances; Z51.5 Encounter for palliative care; Z87.19 Personal history of other diseases of the digestive system; Z90.89 Acquired absence of other organs; Z87.01 Personal history of pneumonia (recurrent); Z87.891 Personal history of nicotine dependence; Z72.89 Other problems related to lifestyle; Z23 Encounter for immunization
CPT/HCPCS: C1751; C9113; J1100; J1650; J2060; J2270; J2543; J7030; P9016; Q9967